=== PATIENT | male | born 1930 | race Caucasian/White ===

== ENCOUNTER 2018-03-20 09:40 | Inpatient (IN) | END 2018-03-30 15:18 | DRG 38 ==

== ENCOUNTER 2018-03-30 15:30 | Inpatient (IN) | END 2018-04-20 13:30 | disposition home health service (06) | DRG 57 ==

== ENCOUNTER 2018-11-20 15:40 | Inpatient (IN) | payer MEDICARE, OTHER ==
[~2018-11-20] VITALS: Ht 182.9 cm; Wt 93.6 kg
[~2018-11-20 15:40] MED LIST: AMLO-145 PO; FINA5TAB4 PO; TAMS0.4C2 PO
[2018-11-20] MEDS ORDERED: SODIUM CHLORIDE 0.9% 1L BAG IV* STA (16:14)
[2018-11-20] MEDS ORDERED: CEFEPIME 2GM/50 ML (PMX) 50 ML IVPB STA (16:14)
[2018-11-20] MEDS ORDERED: ASPI81TA52 PO (16:20)
[2018-11-20] MEDS ORDERED: ATOR-2 PO (16:20)
[2018-11-20] MEDS ORDERED: NIFE60TA24 PO (16:21)
[2018-11-20] MEDS ORDERED: METO-335 PO (16:21)
[2018-11-20] MEDS ORDERED: FINA5TAB4 PO (16:21)
[2018-11-20] MEDS ORDERED: TAMS-14 PO (16:22)
[2018-11-20] MEDS ORDERED: AZIT250T PO (16:22)
[2018-11-20] MEDS ORDERED: VANCOMYCIN 1 GM (PMX) 250 ML IVPB ONE (16:30)
[2018-11-20] MEDS ORDERED: ACETAMINOPHEN 325 MG TAB PO ONE (17:00)
[2018-11-20] MEDS ORDERED: ACETAMINOPHEN 325 MG TAB PO PRN ×2 (19:00)
[2018-11-20] MEDS ORDERED: NACL 0.9% 3 ML SYG IV SCH (19:00)
[2018-11-20] MEDS ORDERED: ONDANSETRON 4 MG INJ IV PRN ×2 (19:00)
--- NOTE | 2018-11-20 19:17 | ERD ---
ER Documentation Chief Complaint Chief Complaint Weakness x 2 weeks worse today with n/v this this morning. HPI Patient is an 88-year-old male with history of stroke and hypertension who presents with runny nose and cough. He has had gradual onset of weakness over the past 3 weeks. He is shivering. He did not want to walk today because he was so weak. He went to his primary doctor and was prescribed Zithromax and took 1 dose. He has had productive yellow phlegm. ROS All systems reviewed and are negative except as per history of present illness. Medications Home Meds Reported Medications Azithromycin* (Zithromax*) 250 Mg Tablet, 250 MG PO DAILY, TAB STARTED 11-20-18 11/20/18 Tamsulosin Hcl* (Flomax*) 0.4 Mg Cap.er.24h, 0.4 MG PO DAILY, CAP 11/20/18 Finasteride* (Finasteride*) 5 Mg Tablet, 5 MG PO DAILY, TAB 11/20/18 Nifedipine* (Afeditab CR*) 60 Mg Tablet.er, 60 MG PO DAILY, #30 TAB.SA 11/20/18 Metoprolol Succinate* (Toprol XL*) 25 Mg Tab.sr.24h, 12.5 MG PO DAILY, #30 TAB 11/20/18 Atorvastatin* (Atorvastatin*) 80 Mg Tablet, 80 MG PO QHS, #30 TAB 11/20/18 Aspirin (Low Dose Aspirin) 81 Mg Tablet.dr, 81 MG PO DAILY, #30 TAB 11/20/18 Discontinued Reported Medications Finasteride* (Finasteride*) 5 Mg Tablet, 5 MG PO DAILY, TAB 03/20/18 Tamsulosin Hcl* (Tamsulosin Hcl*) 0.4 Mg Cap.er.24h, 0.4 MG PO QHS 03/20/18 Amlodipine Besylate* (Amlodipine Besylate*) 5 Mg Tablet, 5 MG PO BID 03/20/18 Allergies Allergies: Coded Allergies: ciprofloxacin (Verified Allergy, Unknown, 11/20/18) PMhx/Soc History of Surgery: Yes (S/p R carotid endartectomy ) Anesthesia Reaction: No Hx Neurological Disorder: Yes (CVA) Hx Respiratory Disorders: No Hx Cardiac Disorders: Yes (CAD, HTN, CHF) Hx Psychiatric Problems: No Hx Miscellaneous Medical Probl: Yes (CGF, HTN, Prox ICA stenosis) Hx Alcohol Use: No Hx Substance Use: No Hx Tobacco Use: No Smoking Status: Never smoker FmHx Family History: No diabetes Physical Exam Vitals Vital Signs Date Temp Pulse Resp B/P (MAP) Pulse Ox O2 O2 Flow FiO2 Time Delivery Rate 11/20/18 99.0 90 20 146/66 98 Nasal 17:45 (92) Cannula 11/20/18 2 16:30 11/20/18 98.2 93 20 122/96 92 15:42 (105) Physical Exam Const: Moderate distress Head: Atraumatic Eyes: Normal Conjunctiva ENT: Normal External Ears, Nose and Mouth. Neck: Full range of motion. No meningismus. Resp: Rhonchorous breath sounds diffusely Cardio: Regular rate and rhythm, no murmurs Abd: Soft, non tender, non distended. Normal bowel sounds Skin: No petechiae or rashes Back: No midline or flank tenderness Ext: No cyanosis, or edema Neur: Awake and alert Psych: Normal Mood and Affect Result Diagram: 11/20/18 1630 Results 24 hrs Laboratory Tests Test 11/20/18 16:30 White Blood Count Pending Red Blood Count Pending Hemoglobin Pending Hematocrit Pending Mean Corpuscular Volume Pending Mean Corpuscular Hemoglobin Pending Mean Corpuscular Hemoglobin Concent Pending Red Cell Distribution Width Pending Platelet Count Pending Mean Platelet Volume Pending Prothrombin Time 15.0 Sec Prothrombin Time Ratio 1.2 INR International Normalized Ratio 1.20 Activated Partial Thromboplast Time 36.5 Sec Urine Color YELLOW Urine Clarity CLEAR Urine pH 6.0 Urine Specific [place] 1.014 Urine Ketones NEGATIVE mg/dL Urine Nitrite NEGATIVE mg/dL Urine Bilirubin NEGATIVE mg/dL Urine Urobilinogen NEGATIVE mg/dL Urine Leukocyte Esterase NEGATIVE Karen/ul Urine Microscopic RBC 4 /HPF Urine Microscopic WBC 1 /HPF Urine Hemoglobin 1+ mg/dL Urine Glucose NEGATIVE mg/dL Urine Total Protein 1+ mg/dl Sodium Level 138 mmol/L Potassium Level 5.0 mmol/L Chloride Level 101 mmol/L Carbon Dioxide Level 26 mmol/L Anion Gap 11 Blood Urea Nitrogen 36 mg/dl Creatinine 1.81 mg/dl Est Glomerular Filtrat Rate mL/min mL/min Glucose Level 113 mg/dl Calcium Level 9.2 mg/dl Total Bilirubin 0.9 mg/dl Direct Bilirubin 0.00 mg/dl Indirect Bilirubin 0.9 mg/dl Aspartate Amino Transf (AST/SGOT) 26 IU/L Alanine Aminotransferase (ALT/SGPT) 23 IU/L Alkaline Phosphatase 95 IU/L Troponin I < 0.010 ng/ml Total Protein 8.2 g/dl Albumin 4.3 g/dl Globulin 3.90 g/dl Albumin/Globulin Ratio 1.10 Current Medications Medications Dose Sig/Benjamin Start Time Status Last (Trade) Ordered Route PRN Stop Time Admin Dose Reason Admin Sodium 2,400 ml BOLUS OVER 2 11/20/18 DC 11/20/18 Chloride HOURS STAT 16:14 16:49 (NS) IV* 11/20/18 16:15 Cefepime HCl 50 ml @ ONCE STAT 11/20/18 DC 11/20/18 100 mls/hr IVPB 16:14 16:50 11/20/18 16:43 Vancomycin 250 ml @ ONCE ONCE 11/20/18 DC 11/20/18 HCl 125 mls/hr IVPB 16:30 17:27 11/20/18 18:29 650 mg ONCE ONCE 11/20/18 DC 11/20/18 Acetaminophen PO 17:00 16:59 (Tylenol 11/20/18 17:01 Tab) Ondansetron 4 mg BRIDGE ORDER 11/20/18 HCl (Zofran PRN IV 19:00 Inj) NAUSEA/VOMITI 11/21/18 18:59 NG 650 mg ER BRIDGE 11/20/18 Acetaminophen PRN PO 19:00 (Tylenol .MILD PAIN 11/21/18 18:59 Tab) 1-3 OR TEMP Procedures/MDM Chest x-ray pending at this point due to IT difficulties. EKG read by me: Rate/Rhythm: Regular rate and rhythm at a normal rate Intervals: Normal Impression: No evidence of ischemia or arrhythmia Patient is an 88-year-old male with a stroke and hypertension who presents with pneumonia. The patient clinically has pneumonia will be treated with Vancomycin and cefepime. The patient was given normal saline 30 mL/kg bolus as well. At this point I doubt sepsis. The patient will be admitted to the care of Dr. Garcia from the panel team. The patient will be admitted to a medical surgical bed. Departure Diagnosis: Primary Impression: Pneumonia Pneumonia type: due to unspecified organism Laterality: unspecified laterality Lung location: unspecified part of lung Qualified Codes: J18.9 - Pneumonia, unspecified organism Condition: Fair MADELYNOSIRIS MD Nov 20, 2018 19:17
--- NOTE | 2018-11-20 19:32 | HP ---
Date/Time of Note Date/Time of Note DATE: 11/20/18 TIME: 19:23 Assessment/Plan VTE Prophylaxis SCD applied (from Nsg): Yes Pharmacological prophylaxis: NA/contraindicated Pharm contraindication: low risk/ambulating Lines/Catheters IV Catheter Type (from Nrsg): Saline Lock Assessment/Plan Assessment/Plan 88 yo man with history of stroke presents with cough and fatigue. #Pneumonia - Productive cough, diminished lung sounds concerning for pneumonia - Currently cannot view imaging on [facility] so cannot see CXR or read. - Will empirically treat for community-acquired pneumonia with ceftriaxone and azithromycin. - Admit to med/surg. - PT #History of stroke - Continue statin, aspirin. #Hypertension - Cont metoprolol, amlodipine #BPH - Cont flomax, finasteride. DVT: SCDs GI: None Result Diagram: 11/20/18 1630 HPI/ROS Admit Date/Time Admit Date/Time 20 November 2018 Hx of Present Illness Mr. Andino is an 88 yo [place] man who presents with fatigue and cough. Symptoms started two weeks ago with fatigue. About one week ago he developed cough productive of yellowish sputum and intermittent subjective fevers. Occasional pleuritic chest pain when he coughs. This morning he went to see his primary care doctor, who prescribed azithromycin. Later today at home the patient was too fatigued to walk to he came to the emergency room. Of note he was recently hospitalized here in Mar 2018 for acute stroke. In the ED the patient was afebrile, vitals normal, BMP normal, trop negative. ROS He denies weight loss, anorexia, night sweats, orthopnea, headache, dizziness, vision changes, sore throat, dyspnea, nausea, vomiting, chest pressure or palpitations, abdominal pain, diarrhea, constipation, dysuria, hematuria. He does have urinary obstructive symptoms. PMH/Family/Social Past Medical History Stroke 2018 with residual loss of balance Medications Current Medications Ondansetron HCl (Zofran Inj) 4 mg BRIDGE ORDER PRN IV NAUSEA/VOMITING; Start 11/20/18 at 19:00; Stop 11/21/18 at 18:59 Acetaminophen (Tylenol Tab) 650 mg ER BRIDGE PRN PO .MILD PAIN 1-3 OR TEMP; Start 11/20/18 at 19:00; Stop 11/21/18 at 18:59 IV Flush (NS 3 ml) 3 ml PER PROTOCOL IV ; Start 11/20/18 at 19:00 Ondansetron HCl (Zofran Inj) 4 mg Q6H PRN IV NAUSEA/VOMITING; Start 11/20/18 at 19:00 Acetaminophen (Tylenol Tab) 650 mg Q6H PRN PO .PAIN 1-3 OR TEMP; Start 11/20/18 at 19:00 Aspirin (Halfprin) 81 mg DAILY PO ; Start 11/21/18 at 09:00 Atorvastatin Calcium (Lipitor) 80 mg QHS PO ; Start 11/20/18 at 21:00 Finasteride (Proscar) 5 mg DAILY PO ; Start 11/21/18 at 09:00 Metoprolol Succinate (Toprol Xl) 12.5 mg DAILY PO ; Start 11/21/18 at 09:00 Nifedipine (Procardia Xl) 60 mg DAILY PO ; Start 11/21/18 at 09:00 Tamsulosin HCl (Flomax) 0.4 mg DAILY PO ; Start 11/21/18 at 09:00 Ceftriaxone Sodium 50 ml @ 100 mls/hr Q24H IVPB ; Start 11/21/18 at 15:00; Status UNV Azithromycin 250 ml @ 250 mls/hr Q24H IVPB ; Start 11/20/18 at 19:30; Status UNV Coded Allergies: ciprofloxacin (Verified Allergy, Unknown, 11/20/18) Past Surgical History Right carotid endarterectomy 2018 Past Surgical Hx: other Family History Significant Family History: no pertinent family hx Social History 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 Alcohol Use: occasionally (1 shot per day) Smoking Status: Never smoker Drug Use: none Exam/Review of Systems Vital Signs Vitals Vital Signs Date Temp Pulse Resp B/P (MAP) Pulse Ox O2 O2 Flow FiO2 Time Delivery Rate 11/20/18 99.0 90 20 146/66 98 Nasal 17:45 (92) Cannula 11/20/18 2 16:30 Exam Exam Gen: Elderly [place] man supine in bed. Eyes: PERRL, no icterus. R eye with gummy thick discharge. HEENT: Moist mucous membranes, clear oropharynx. Top and bottom dentures. Neck: Supple , no lymphadenopathy, no JVD. Old R neck surgical scar, well hea led. Card: Regular rate and rhythm, 2/6 systolic ejection murmur. Pulm: Diminished lung sounds throughout. Mild L sided wheezing. Abd: Soft, nontender, nondistended. Ext: No cyanosis/clubbing/edema. Good peripheral pulses. Skin: warm, dry, well perfused. GILMAR LYNN MD Nov 20, 2018 19:32
[2018-11-20 21:00] VITALS: Ht 182.9 cm; Wt 93.6 kg
[2018-11-20 22:00] VITALS: BP 130/61; PULSE 74; RESP 22
[2018-11-20] MEDS: AZITHROMYCIN 500MG/NS (PMX) 250 ML IVPB SCH (22:04)
[2018-11-20] MEDS: ATORVASTATIN 80 MG TAB PO SCH (22:16)
[2018-11-20] MEDS: METOPROLOL (XL) 25 MG TAB PO SCH (22:19)
[2018-11-21 02:00] VITALS: BP 108/54; PULSE 80; RESP 17
[2018-11-21 08:01] VITALS: BP 124/60; PULSE 62; RESP 16
[2018-11-21] MEDS: ASPIRIN (EC) 81 MG TAB PO SCH (08:52)
[2018-11-21] MEDS: FINASTERIDE 5 MG TAB PO SCH (08:52)
[2018-11-21] MEDS: TAMSULOSIN (SR) 0.4 MG CAP PO SCH (08:52)
[2018-11-21] MEDS: NIFEdipine (XL) 60 MG TAB PO SCH (08:52)
[2018-11-21] MEDS ORDERED: METOPROLOL (XL) 25 MG TAB PO SCH (09:00)
[2018-11-21 14:36] VITALS: BP 133/60; PULSE 73; RESP 18
--- NOTE | 2018-11-21 14:47 | PN ---
Date/Time of Note Date/Time of Note DATE: 11/21/18 TIME: 14:44 Assessment/Plan VTE Prophylaxis Risk score (from Ns)>0 risk: 5 SCD applied (from Ns): Yes Pharmacological prophylaxis: NA/contraindicated Pharm contraindication: low risk/ambulating Lines/Catheters IV Catheter Type (from Nrs): Saline Lock Urinary Cath still in place: No Assessment/Plan Assessment/Plan 88 yo man with history of stroke presents with cough and fatigue. #Pneumonia - Productive cough, diminished lung sounds concerning for pneumonia - CXR clear. Will treat as atypical pneumonia (myoplasma), discharge on azithromycin. - Differential also includes viral URI and bronchitis. - Currently hospitalized with severe weakness. - PT #History of stroke - Continue statin, aspirin. #Hypertension - Cont metoprolol, amlodipine #BPH - Cont flomax, finasteride. DVT: SCDs GI: None Result Diagram: 11/21/1861311/21/18613 Subjective 24 Hr Interval Summary Free Text/Dictation No acute overnight events. Patient tried walking with help from the nurse but still is very weak; could barely stand. Exam/Review of Systems Exam Vitals Vital Signs Date Temp Pulse Resp B/P (MAP) Pulse Ox O2 O2 Flow FiO2 Time Delivery Rate 11/21/18 98.1 73 18 133/60 95 14:36 (84) 11/21/18 Room Air 02:00 11/20/18 2.0 19:44 Intake and Output 11/20/18 11/20/18 11/21/18 1515:00 23:00 07:00 IntakeIntake Total 550 ml OutputOutput Total 700 ml BalanceBalance -150 ml Exam Gen: Elderly [place] man supine in bed. Eyes: PERRL, no icterus. HEENT: Moist mucous membranes, clear oropharynx. Top and bottom dentures. Neck: Supple , no lymphadenopathy, no JVD. Old R neck surgical scar, well healed. Card: Regular rate and rhythm, 2/6 systolic ejection murmur. Pulm: Diminished lung sounds throughout. Mild L sided wheezing. Abd: Soft, nontender, nondistended. Ext: No cyanosis/clubbing/edema. Good peripheral pulses. Skin: warm, dry, well perfused. Results Results 24hrs Laboratory Tests Test 11/20/18 16:30 11/20/18 16:46 11/20/18 18:35 11/20/18 21:29 White Blood Count 14.6 #H Red Blood Count 4.08 L Hemoglobin 11.7 L Hematocrit 35.4 L Mean Corpuscular 86.8 Volume Mean Corpuscular 28.7 L Hemoglobin Mean Corpuscular 33.1 Hemoglobin Concent Red Cell 13.6 Distribution Width Platelet Count 168 Mean Platelet Volume 10.4 Neutrophils % 85.8 H Lymphocytes % 6.4 L Monocytes % 6.5 Eosinophils % 0.6 Basophils % 0.2 Nucleated Red Blood 0.0 Cells % Neutrophils # 12.6 H Lymphocytes # 0.9 Monocytes # 1.0 H Eosinophils # 0.1 Basophils # 0.0 Nucleated Red Blood 0.0 Cells # Prothrombin Time 15.0 H Prothrombin Time 1.2 Ratio INR International 1.20 Normalized Ratio Activated 36.5 H Partial Thromboplast Time Urine Color YELLOW Urine Clarity CLEAR Urine pH 6.0 Urine Specific 1.014 [place] Urine Ketones NEGATIVE Urine Nitrite NEGATIVE Urine Bilirubin NEGATIVE Urine Urobilinogen NEGATIVE Urine Leukocyte NEGATIVE Esterase Urine Microscopic 4 RBC Urine Microscopic 1 WBC Urine Hemoglobin 1+ H Urine Glucose NEGATIVE Urine Total Protein 1+ Sodium Level 138 Potassium Level 5.0 Chloride Level 101 Carbon Dioxide Level 26 Anion Gap 11 Blood Urea Nitrogen 36 H Creatinine 1.81 H Est Glomerular Filtrat Rate mL/min Glucose Level 113 Calcium Level 9.2 Total Bilirubin 0.9 Direct Bilirubin 0.00 Indirect Bilirubin 0.9 Aspartate Amino 26 Transf (AST/SGOT) Alanine 23 Aminotransferase (AL T/SGPT) Alkaline Phosphatase 95 Troponin I < 0.010 Total Protein 8.2 H Albumin 4.3 Globulin 3.90 H Albumin/Globulin 1.10 Ratio POC Venous Lactate 1.1 Lactic Acid Level 0.8 0.7 Test 11/21/18 06:14 White Blood Count 13.7 H Red Blood Count 3.67 L Hemoglobin 10.6 L Hematocrit 32.1 L Mean Corpuscular 87.5 Volume Mean Corpuscular 28.9 L Hemoglobin Mean Corpuscular 33.0 Hemoglobin Concent Red Cell 13.7 Distribution Width Platelet Count 148 Mean Platelet Volume 10.4 Immature 0.600 H Granulocytes % Neutrophils % 80.7 H Lymphocytes % 8.7 L Monocytes % 8.5 Eosinophils % 1.3 Basophils % 0.2 Nucleated Red Blood 0.0 Cells % Immature 0.080 H Granulocytes # Neutrophils # 11.1 H Lymphocytes # 1.2 Monocytes # 1.2 H Eosinophils # 0.2 Basophils # 0.0 Nucleated Red Blood 0.0 Cells # Sodium Level 140 Potassium Level 4.2 Chloride Level 108 Carbon Dioxide Level 25 Anion Gap 7 Blood Urea Nitrogen 27 H Creatinine 1.53 H Est Glomerular Filtrat Rate mL/min Glucose Level 102 Hemoglobin A1c 5.4 Calcium Level 8.7 Phosphorus Level 3.6 Magnesium Level 2.1 Total Bilirubin 1.3 Direct Bilirubin 0.00 Indirect Bilirubin 1.3 H Aspartate Amino 20 Transf (AST/SGOT) Alanine 23 Aminotransferase (AL T/SGPT) Alkaline Phosphatase 70 Total Protein 6.8 # Albumin 3.5 Globulin 3.30 H Albumin/Globulin 1.06 Ratio Thyroid Stimulating 1.330 Hormone (TSH) Medications Medication Current Medications IV Flush (NS 3 ml) 3 ml PER PROTOCOL IV ; Start 11/20/18 at 19:00 Ondansetron HCl (Zofran Inj) 4 mg Q6H PRN IV NAUSEA/VOMITING; Start 11/20/18 at 19:00 Acetaminophen (Tylenol Tab) 650 mg Q6H PRN PO .PAIN 1-3 OR TEMP; Start 11/20/18 at 19:00 Aspirin (Halfprin) 81 mg DAILY PO Last administered on 11/21/18 08:52; Admin Dose 81 MG; Start 11/21/18 at 09:00 Atorvastatin Calcium (Lipitor) 80 mg QHS PO Last administered on 11/20/18at 22:16; Admin Dose 80 MG; Start 11/20/18 at 21:00 Finasteride (Proscar) 5 mg DAILY PO Last administered on 11/21/18 08:52; Admin Dose 5 MG; Start 11/21/18 at 09:00 Nifedipine (Procardia Xl) 60 mg DAILY PO Last administered on 11/21/18 08:52; Admin Dose 60 MG; Start 11/21/18 at 09:00 Tamsulosin HCl (Flomax) 0.4 mg DAILY PO Last administered on 11/21/18 08:52; Admin Dose 0.4 MG; Start 11/21/18 at 09:00 Ceftriaxone Sodium 50 ml @ 100 mls/hr Q24H IVPB ; Start 11/21/18 at 15:00 Azithromycin 250 ml @ 250 mls/hr Q24H IVPB Last administered on 11/20/18at 22:04; Admin Dose 250 MLS/HR; Start 11/20/18 at 19:30 Metoprolol Succinate (Toprol Xl) 12.5 mg HS PO Last administered on 11/20/18at 22:19; Admin Dose 12.5 MG; Start 11/20/18 at 21:00 GILMAR LYNN MD Nov 21, 2018 14:47
[2018-11-21] MEDS ORDERED: CEFTRIAXONE 1 GM/50 ML (PMX) 50 ML IVPB SCH (15:00)
[2018-11-21 20:00] VITALS: BP 119/58; PULSE 76; RESP 17
[2018-11-21] MEDS: AZITHROMYCIN 500MG/NS (PMX) 250 ML IVPB SCH (21:13)
[2018-11-21] MEDS: GUAIFENESIN 20 MG/ML 5ML CUP PO PRN (21:13)
[2018-11-21] MEDS: ATORVASTATIN 80 MG TAB PO SCH (21:13)
[2018-11-21] MEDS: METOPROLOL (XL) 25 MG TAB PO SCH (21:17)
[2018-11-22] MEDS ORDERED: ZOLPIDEM 5 MG TAB PO ONE (00:30)
[2018-11-22 02:00] VITALS: BP 129/60; PULSE 73; RESP 19
[2018-11-22 07:21] VITALS: BP 133/68; PULSE 71; RESP 16
[2018-11-22] MEDS: NIFEdipine (XL) 60 MG TAB PO SCH (09:01)
[2018-11-22] MEDS: ASPIRIN (EC) 81 MG TAB PO SCH (09:01)
[2018-11-22] MEDS: FINASTERIDE 5 MG TAB PO SCH (09:01)
[2018-11-22] MEDS: TAMSULOSIN (SR) 0.4 MG CAP PO SCH (09:01)
--- NOTE | 2018-11-22 12:22 | PN ---
Date/Time of Note Date/Time of Note DATE: 11/22/18 TIME: 12:20 Assessment/Plan VTE Prophylaxis Risk score (from Ns)>0 risk: 5 SCD applied (from Ns): Yes Pharmacological prophylaxis: NA/contraindicated Pharm contraindication: low risk/ambulating Lines/Catheters IV [facility] Saline Lock Urinary Cath still in place: No Assessment/Plan Assessment/Plan 88 yo man with history of stroke presents with cough and fatigue. #Pneumonia - Productive cough, diminished lung sounds concerning for pneumonia - CXR clear. Will treat as atypical pneumonia (myoplasma), azithromycin only. - Differential also includes viral URI and bronchitis. - Currently hospitalized with severe weakness. - PT #History of stroke - Continue statin, aspirin. #Hypertension - Cont metoprolol, amlodipine #BPH - Cont flomax, finasteride. DVT: SCDs GI: None Dispo: Daughter is worried that he is very weak. Plan for PT evaluation on Friday. Result Diagram: 11/21/1861311/21/18613 Subjective 24 Hr Interval Summary Free Text/Dictation No acute overnight events. Patient still feeling weak. But able to stand up and get to the chair almost independently for me. Daughter was at bedside; I updated her on his status and answered questions. She really wants physical therapy eval. Exam/Review of Systems Exam Vitals Vital Signs Date Temp Pulse Resp B/P (MAP) Pulse Ox O2 O2 Flow FiO2 Time Delivery Rate 11/22/18 98.5 71 16 133/68 96 Room Air 07:21 (89) 11/20/18 2.0 19:44 Intake and Output 11/21/18 11/21/18 11/22/18 1515:00 23:00 07:00 IntakeIntake Total 840 ml 1550 ml 800 ml OutputOutput Total 770 ml 500 ml 500 ml BalanceBalance 70 ml 1050 ml 300 ml Exam Gen: Elderly [place] man supine in bed. Eyes: PERRL, no icterus. HEENT: Moist mucous membranes, clear oropharynx. Top and bottom dentures. Neck: Supple , no lymphadenopathy, no JVD. Old R neck surgical scar, well healed. Card: Regular rate and rhythm, 2/6 systolic ejection murmur. Pulm: Diminished lung sounds throughout. Mild L sided wheezing. Abd: Soft, nontender, nondistended. Ext: No cyanosis/clubbing/edema. Good peripheral pulses. Skin: warm, dry, well perfused. Medications Medication Current Medications IV Flush (NS 3 ml) 3 ml PER PROTOCOL IV ; Start 11/20/18 at 19:00 Ondansetron HCl (Zofran Inj) 4 mg Q6H PRN IV NAUSEA/VOMITING; Start 11/20/18 at 19:00 Acetaminophen (Tylenol Tab) 650 mg Q6H PRN PO .PAIN 1-3 OR TEMP; Start 11/20/18 at 19:00 Aspirin (Halfprin) 81 mg DAILY PO Last administered on 11/22/18 09:01; Admin Dose 81 MG; Start 11/21/18 at 09:00 Atorvastatin Calcium (Lipitor) 80 mg QHS PO Last administered on 11/21/18 21:13; Admin Dose 80 MG; Start 11/20/18 at 21:00 Finasteride (Proscar) 5 mg DAILY PO Last administered on 11/22/18 09:01; Admin Dose 5 MG; Start 11/21/18 at 09:00 Nifedipine (Procardia Xl) 60 mg DAILY PO Last administered on 11/22/18 09:01; Admin Dose 60 MG; Start 11/21/18 at 09:00 Tamsulosin HCl (Flomax) 0.4 mg DAILY PO Last administered on 11/22/18 09:01; Admin Dose 0.4 MG; Start 11/21/18 at 09:00 Ceftriaxone Sodium 50 ml @ 100 mls/hr Q24H IVPB Last administered on 11/21/18at 14:44; Admin Dose 100 MLS/HR; Start 11/21/18 at 15:00 Azithromycin 250 ml @ 250 mls/hr Q24H IVPB Last administered on 11/21/18 21:13; Admin Dose 250 MLS/HR; Start 11/20/18 at 19:30 Metoprolol Succinate (Toprol Xl) 12.5 mg HS PO Last administered on 11/21/18 21:17; Admin Dose 12.5 MG; Start 11/20/18 at 21:00 Guaifenesin (Robitussin Liquid Cup) 200 mg Q4H PRN PO COUGH Last administered on 11/21/18 21:13; Admin Dose 200 MG; Start 11/21/18 at 16:00 GILMAR LYNN MD Nov 22, 2018 12:22
[2018-11-22 14:10] VITALS: BP 121/56; PULSE 72; RESP 16
[2018-11-22] MEDS: AZITHROMYCIN 250 MG TAB PO SCH (14:53)
[2018-11-22 20:00] VITALS: BP 119/57; PULSE 74; RESP 17
[2018-11-22] MEDS: ATORVASTATIN 80 MG TAB PO SCH (21:44)
[2018-11-22] MEDS: METOPROLOL (XL) 25 MG TAB PO SCH (21:45)
[2018-11-22] MEDS: GUAIFENESIN 20 MG/ML 5ML CUP PO PRN (21:47)
[2018-11-23 02:00] VITALS: BP 125/58; PULSE 78; RESP 15
[2018-11-23 08:22] VITALS: BP 132/64; PULSE 73; RESP 18
[2018-11-23] MEDS: AZITHROMYCIN 250 MG TAB PO SCH (09:40)
[2018-11-23] MEDS: FINASTERIDE 5 MG TAB PO SCH (09:40)
[2018-11-23] MEDS: TAMSULOSIN (SR) 0.4 MG CAP PO SCH (09:41)
[2018-11-23] MEDS: ASPIRIN (EC) 81 MG TAB PO SCH (09:42)
[2018-11-23] MEDS: NIFEdipine (XL) 60 MG TAB PO SCH (09:42)
--- NOTE | 2018-11-23 11:42 | PN ---
Date/Time of Note Date/Time of Note DATE: 11/23/18 TIME: 11:33 Assessment/Plan VTE Prophylaxis Risk score (from Ns)>0 risk: 4 SCD applied (from Ns): Yes Pharmacological prophylaxis: heparin Lines/Catheters IV [facility]from [facility] Urinary Cath still in place: No Assessment/Plan Assessment/Plan 1. Acute bronchitis/pneumonia, improving, put on levaquin 2. Acute kidney injury, likely dehydration related, on IVF 3. Generalied weakness, PT 4. H/ stroke, on aspirin and statin 5. HTn, controlled 6. BPH, on flomax and proscar 7. DVT prophylaxis: heparin Result Diagram: 11/23/1852011/23/18520 Results 24hrs Laboratory Tests Test 11/23/18 05:21 White Blood Count 10.9 #H Red Blood Count 4.13 L Hemoglobin 11.7 L Hematocrit 36.1 L Mean Corpuscular Volume 87.4 Mean Corpuscular Hemoglobin 28.3 L Mean Corpuscular Hemoglobin Concent 32.4 Red Cell Distribution Width 13.2 Platelet Count 211 # Mean Platelet Volume 10.1 Immature Granulocytes % 0.600 H Neutrophils % 72.1 Lymphocytes % 13.7 L Monocytes % 8.1 Eosinophils % 5.1 Basophils % 0.4 Nucleated Red Blood Cells % 0.0 Immature Granulocytes # 0.060 H Neutrophils # 7.9 H Lymphocytes # 1.5 Monocytes # 0.9 Eosinophils # 0.6 H Basophils # 0.0 Nucleated Red Blood Cells # 0.0 Sodium Level 140 Potassium Level 4.5 Chloride Level 106 Carbon Dioxide Level 23 Anion Gap 11 Blood Urea Nitrogen 23 H Creatinine 1.42 H Est Glomerular Filtrat Rate mL/min Glucose Level 114 Calcium Level 8.9 Phosphorus Level 3.6 Magnesium Level 2.1 Subjective 24 Hr Interval Summary Free Text/Dictation 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 no fever Exam/Review of Systems Exam Vitals Vital Signs Date Temp Pulse Resp B/P (MAP) Pulse Ox O2 O2 Flow FiO2 Time Delivery Rate 11/23/18 98.1 73 18 132/64 93 08:22 (86) 11/22/18 Room Air 14:10 11/20/18 2.0 19:44 Intake and Output 11/22/18 11/22/18 11/23/18 1515:00 23:00 07:00 IntakeIntake Total 600 ml 500 ml 800 ml OutputOutput Total 250 ml BalanceBalance 350 ml 500 ml 800 ml Constitutional: alert, oriented, well developed Psych: no complaints Head: normocephalic, atraumatic Eyes: nl conjunctiva, EOMI, nl lids ENMT: nl external ears & nose, nl lips & teeth, nl nasal mucosa & septum Neck: supple, non-tender Respiratory: clear to auscultation, normal air movement; No congested cough, No crackles/rales, No diminished breath sounds, No intercostal retraction, No labored breathing, No respirations, No tactile fremitus, No wheezing, No other Cardiovascular: regular rate and rhythm, nl pulses; No bruits, No diastolic murmur, No edema, No gallop, No irregular rhythm, No jugular venous distention (JVD), No murmurs/extra sounds, No rub, No systolic murmur, No S3, No S4, No other Gastrointestinal: soft, nl liver, spleen, non-tender Musculoskeletal: nl extremities to inspection Extremities: normal pulses; No calf tenderness, No cyanosis, No clubbing, No edema, No pitting pedal edema, No palpable cord, No tenderness, No other 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, nl mental status, nl speech, nl strength Results Results 24hrs Laboratory Tests Test 11/23/18 05:21 White Blood Count 10.9 #H Red Blood Count 4.13 L Hemoglobin 11.7 L Hematocrit 36.1 L Mean Corpuscular Volume 87.4 Mean Corpuscular Hemoglobin 28.3 L Mean Corpuscular Hemoglobin Concent 32.4 Red Cell Distribution Width 13.2 Platelet Count 211 # Mean Platelet Volume 10.1 Immature Granulocytes % 0.600 H Neutrophils % 72.1 Lymphocytes % 13.7 L Monocytes % 8.1 Eosinophils % 5.1 Basophils % 0.4 Nucleated Red Blood Cells % 0.0 Immature Granulocytes # 0.060 H Neutrophils # 7.9 H Lymphocytes # 1.5 Monocytes # 0.9 Eosinophils # 0.6 H Basophils # 0.0 Nucleated Red Blood Cells # 0.0 Sodium Level 140 Potassium Level 4.5 Chloride Level 106 Carbon Dioxide Level 23 Anion Gap 11 Blood Urea Nitrogen 23 H Creatinine 1.42 H Est Glomerular Filtrat Rate mL/min Glucose Level 114 Calcium Level 8.9 Phosphorus Level 3.6 Magnesium Level 2.1 Medications Medication Current Medications IV Flush (NS 3 ml) 3 ml PER PROTOCOL IV ; Start 11/20/18 at 19:00 Ondansetron HCl (Zofran Inj) 4 mg Q6H PRN IV NAUSEA/VOMITING; Start 11/20/18 at 19:00 Acetaminophen (Tylenol Tab) 650 mg Q6H PRN PO .PAIN 1-3 OR TEMP; Start 11/20/18 at 19:00 Aspirin (Halfprin) 81 mg DAILY PO Last administered on 11/23/18 09:42; Admin Dose 81 MG; Start 11/21/18 at 09:00 Atorvastatin Calcium (Lipitor) 80 mg QHS PO Last administered on 11/22/18 21:44; Admin Dose 80 MG; Start 11/20/18 at 21:00 Finasteride (Proscar) 5 mg DAILY PO Last administered on 11/23/18 09:40; Admin Dose 5 MG; Start 11/21/18 at 09:00 Nifedipine (Procardia Xl) 60 mg DAILY PO Last administered on 11/23/18 09:42; Admin Dose 60 MG; Start 11/21/18 at 09:00 Tamsulosin HCl (Flomax) 0.4 mg DAILY PO Last administered on 11/23/18 09:41; Admin Dose 0.4 MG; Start 11/21/18 at 09:00 Metoprolol Succinate (Toprol Xl) 12.5 mg HS PO Last administered on 11/22/18 21:45; Admin Dose 12.5 MG; Start 11/20/18 at 21:00 Guaifenesin (Robitussin Liquid Cup) 200 mg Q4H PRN PO COUGH Last administered on 11/22/18 21:47; Admin Dose 200 MG; Start 11/21/18 at 16:00 Levofloxacin (Levaquin) 500 mg DAILY@06 PO ; Start 11/24/18 at 06:00; Status JOSUE CHASE MD Nov 23, 2018 11:42
[2018-11-23] MEDS: SOD CHLORIDE 0.45% 1,000 ML IV SCH (11:58)
[2018-11-23 15:00] VITALS: BP 119/56; PULSE 74; RESP 18
[2018-11-23 19:38] VITALS: BP 116/56; PULSE 72; RESP 20
[2018-11-23] MEDS: ATORVASTATIN 80 MG TAB PO SCH (20:48)
[2018-11-23] MEDS: METOPROLOL (XL) 25 MG TAB PO SCH (20:48)
[2018-11-23] MEDS: HEPARIN 5,000 UNIT/1 ML VIAL SC SCH (20:49)
[2018-11-23] MEDS: GUAIFENESIN 20 MG/ML 5ML CUP PO PRN (20:54)
[2018-11-24 01:57] VITALS: BP 127/63; PULSE 70; RESP 20
[2018-11-24] MEDS: SOD CHLORIDE 0.45% 1,000 ML IV SCH ×2 (02:19→13:38)
[2018-11-24] MEDS ORDERED: LEVOFLOXACIN 500 MG TAB PO SCH (06:00)
[2018-11-24 08:23] VITALS: BP 143/66; PULSE 73; RESP 18
[2018-11-24] MEDS: FINASTERIDE 5 MG TAB PO SCH (09:32)
[2018-11-24] MEDS: ASPIRIN (EC) 81 MG TAB PO SCH (09:32)
[2018-11-24] MEDS: TAMSULOSIN (SR) 0.4 MG CAP PO SCH (09:32)
[2018-11-24] MEDS: NIFEdipine (XL) 60 MG TAB PO SCH (09:33)
[2018-11-24] MEDS: HEPARIN 5,000 UNIT/1 ML VIAL SC SCH (09:37)
[2018-11-24] MEDS: GUAIFENESIN 20 MG/ML 5ML CUP PO PRN (11:25)
[2018-11-24] MEDS ORDERED: AMOX1TAB10 PO (12:23)
--- NOTE | 2018-11-24 12:33 | DS ---
Date/Time of Note Date/Time of Note DATE: 11/24/18 TIME: 12:24 Discharge Summary Admission/Discharge Info Admit Date/Time Nov 20, 2018 at 18:49 Discharge Date/Time Discharge Diagnosis 1. Acute bronchitis/pneumonia, stable, continue antibiotics 2. Acute kidney injury, likely dehydration related, improving, follow up with PCP 3. Generalized weakness, PT 4. H/o stroke, on aspirin and statin 5. HTN, controlled 6. BPH, on flomax and proscar Patient Condition: Stable Hospital Course Mr. Andino is an 88 yo American man who presents with fatigue and cough. Symptoms started two weeks ago with fatigue. About one week ago he developed cough productive of yellowish sputum and intermittent subjective fevers. Occasional pleuritic chest pain when he coughs. This morning he went to see his primary care doctor, who prescribed azithromycin. Later today at home the patient was too fatigued to walk to he came to the emergency room. Patient was recently hospitalized here in Mar 2018 for acute stroke. In the ED the patient was afebrile, vitals normal, BMP normal, trop negative. CXR no infiltrates. Physical exam with some crackles on both back of chest. Patient was started on zithromax for acute bronchitis, likely early pneumonia, symptoms improved. Patient states he has history of cipro allergy but does not remember what happened. I talked with the [facility] who cannot remember either. Patient got one dose of levaquin that he does not have allergic reaction. I will send him home with augmentin. Home Meds Active Scripts Amoxicillin/Potassium Clav (Amox-Clav 875-125 mg Tablet) 875-125 mg Tab, 1 TAB PO BID, #14 TAB Prov:JOSUE STEWART MD 11/24/18 Reported Medications Tamsulosin Hcl* (Flomax*) 0.4 Mg Cap.er.24h, 0.4 MG PO DAILY, CAP 11/20/18 Finasteride* (Finasteride*) 5 Mg Tablet, 5 MG PO DAILY, TAB 11/20/18 Nifedipine* (Afeditab CR*) 60 Mg Tablet.er, 60 MG PO DAILY, #30 TAB.SA 11/20/18 Metoprolol Succinate* (Toprol XL*) 25 Mg Tab.sr.24h, 12.5 MG PO DAILY, #30 TAB 11/20/18 Atorvastatin* (Atorvastatin*) 80 Mg Tablet, 80 MG PO QHS, #30 TAB 11/20/18 Aspirin (Low Dose Aspirin) 81 Mg Tablet.dr, 81 MG PO DAILY, #30 TAB 11/20/18 Discontinued Reported Medications Azithromycin* (Zithromax*) 250 Mg Tablet, 250 MG PO DAILY, TAB STARTED 11-20-18 11/20/18 Finasteride* (Finasteride*) 5 Mg Tablet, 5 MG PO DAILY, TAB 03/20/18 Tamsulosin Hcl* (Tamsulosin Hcl*) 0.4 Mg Cap.er.24h, 0.4 MG PO QHS 03/20/18 Amlodipine Besylate* (Amlodipine Besylate*) 5 Mg Tablet, 5 MG PO BID 03/20/18 Follow-up Plan PCP in one week Primary Care Provider John Rutherford MD Pending Labs Laboratory Tests Test 11/24/18 07:01 White Blood Count 8.1 10^3/ul (4.8-10.8) Red Blood Count 4.06 10^6/ul (4.70-6.10) Hemoglobin 11.5 g/dl (14.0-18.0) Hematocrit 35.5 % (42.0-52.0) Mean Corpuscular Volume 87.4 fl (82.0-101.0) Mean Corpuscular Hemoglobin 28.3 pg (29.0-33.0) Mean Corpuscular Hemoglobin Concent 32.4 g/dl (32.0-37.0) Red Cell Distribution Width 13.2 % (11.5-14.5) Platelet Count 225 10^3/UL (140-415) Mean Platelet Volume 10.2 fl (7.4-10.4) Immature Granulocytes % 0.500 % (0.001-0.429) Neutrophils % 66.6 % (39.0-77.0) Lymphocytes % 16.5 % (15.0-51.0) Monocytes % 8.6 % (0.0-11.0) Eosinophils % 7.1 % (0.0-7.0) Basophils % 0.7 % (0.0-2.0) Nucleated Red Blood Cells % 0.0 /100WBC (0.0-0.0) Immature Granulocytes # 0.040 10^3/ul (0.0-0.031) Neutrophils # 5.4 10^3/ul (1.6-7.5) Lymphocytes # 1.3 10^3/ul (0.8-2.9) Monocytes # 0.7 10^3/ul (0.3-0.9) Eosinophils # 0.6 10^3/ul (0.0-0.5) Basophils # 0.1 10^3/ul (0.0-0.1) Nucleated Red Blood Cells # 0.0 10^3/ul (0.0-0.0) Sodium Level 142 mmol/L (135-144) Potassium Level 4.6 mmol/L (3.5-5.1) Chloride Level 106 mmol/L (97-110) Carbon Dioxide Level 27 mmol/L (21-31) Anion Gap 9 (5-13) Blood Urea Nitrogen 20 mg/dl (7-20) Creatinine 1.35 mg/dl (0.61-1.24) Est Glomerular Filtrat Rate mL/min mL/min (>60) Glucose Level 110 mg/dl (70-220) Calcium Level 9.0 mg/dl (8.4-10.2) JOSUE STEWART MD Nov 24, 2018 12:33
== END 2018-11-24 15:00 | disposition home health service (06) | DRG 194 ==
LOC: E/R 15:40 → PP2 18:49
PROVIDERS: ADMIT Internal Medicine; ATTEND Internal Medicine
DX: J15.7 Pneumonia due to Mycoplasma pneumoniae (principal); N17.9 Acute kidney failure, unspecified; E86.0 Dehydration; N40.0 Benign prostatic hyperplasia without lower urinary tract symptoms; I10 Essential (primary) hypertension; I25.10 Atherosclerotic heart disease of native coronary artery without angina pectoris; Z79.82 Long term (current) use of aspirin; Z86.73 Personal history of transient ischemic attack (TIA), and cerebral infarction without residual deficits
CPT/HCPCS: 36415; 71045; 76705; 80048; 80053; 81001; 83036; 83605; 83735; 84100; 84443; 84484; 85025; 85610; 85730; 87045; 87086; 87400; 93005; 96374; 96375; 97110; 97162; 97530; J0456; J0692; J0696; J1644; J3370; J7030

== ENCOUNTER 2019-01-18 11:16 | Emergency (ER) | payer MEDICARE, OTHER ==
[~2019-01-18] VITALS: Ht 180.3 cm; Wt 70.0 kg
[~2019-01-18 11:16] MED LIST changes: -AMLO-145 PO; +AMOX1TAB10 PO; +ASPI81TA52 PO; +ATOR-2 PO; +METO-335 PO; +NIFE60TA24 PO; +TAMS-14 PO; -TAMS0.4C2 PO
[2019-01-18] MEDS ORDERED: SOD CHLORIDE 0.9% 1,000 ML IV STA (11:26)
[2019-01-18 11:27] VITALS: Ht 180.3 cm; Wt 70.0 kg
[2019-01-18 12:45] VITALS: BP 128/60; PULSE 69; RESP 20
== END 2019-01-18 13:00 | disposition home or self-care (01) ==
LOC: E/R 11:16
DX: R55 Syncope and collapse (principal); I10 Essential (primary) hypertension; I25.10 Atherosclerotic heart disease of native coronary artery without angina pectoris; Z86.73 Personal history of transient ischemic attack (TIA), and cerebral infarction without residual deficits; Z79.82 Long term (current) use of aspirin
CPT/HCPCS: 36415; 80048; 82962; 84484; 85025; 93005; 99284; J7030